=== PATIENT | female | born 1960 | race Two or more races ===

== ENCOUNTER 2024-12-31 09:56 | Day surgery (SDC) | payer OTHER, SELFPAY ==
[2024-12-12 14:20] VITALS: BMI 20.2
--- NOTE | 2024-12-29 17:40 | W.CON.GYNONC ---
Chief Complaint
-
Ovary /FT Cancer
History of Present Illness
64y/[id number]�WF�menopausal�since�age�51�female�seen�in�consultation�today�refrred�to�me�by�Dr�[facility]�regarding malignant�pleural�effusion�The�patient�presented�to[facility]the[facility]on�[facility]�with�dyspnea.�CXR
revealed�large�right�pleural�effusion.�She�had�been�a�smoker�but�quit�leading�up�to�this�admission�due�to�worsening�dyspnea.�She underwent�US�guided�thoracentesis�on�09/12/24�w/�pathology�revealing�malignant�cells�c/w�adenocarcinoma.�Immuno�stains
revealed�positive�staining�for�WT1�and�PAX8,�raising�possibility�of�gynecologic�mullerian�origin.�She�has�had�2�outpatient thoracentesis�since�then�most�recently�on�09/27/2024.�.�
CT�chest�was�performed�revealing�residual�right�pleural�effusion,�no�definitive�lung�nodules,�and�a�4.5cm�right�adrenal�gland�mass.
F/u�CT�abdomen/pelvis�was�performed�on�09/19/24�revealing�4.2�x�3.5cm�right�adrenal�gland�mass,�that�does�not�meet�criteria�for adenoma.�MRI�was�recommended.�
She�had�an�outpatient�therapeutic�thoracentesis�last�Phillip�09/20,�w/�1500cc�taken�off.�patient�does�receive�gynecologic�care through�Dr.�Grupo�office.�last�seen�by�[facility].�
her�SOB�has�not�recurred�significantly�today.�She�denies�chest�pain.�No�palpitations.�No�abdominal�pain.�No�pelvic�pain�or abnormal�gynecologic�bleeding.�No�blood�in�her�stool�or�urine.�
she�saw�Dr�Tomlinson�at�[facility]�last�week�and�a�PET�CT�scan�was�ordered PMH�Hypothyoidism PSH�left�ankle�fracture�repair She�does�get�regular�mammograms.�She�has�had�Cologuard�which�was�negative.
She�is�,��passed�away�from�[facility]� patient�was�a�smoker�until�about�a�month�ago�where�she�experienced�shortness�of�breath�and�discontinued. She�denies�any�alcohol�drug�or�marijuana�use. 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
lives�alone,�is�active�and�independent.�
She�received�cycle�1�chemotherapy�with�Taxol�and�carboplatin�on .�She�reports�that�she�actually�felt�well�following�that.�She�has�not�had�need�for�repeat�thoracentesis�in�the
interim.�Generally�speaking�she�has�tolerated�procedure�well. Endometrial�biopsy�showed�scant�atrophic�endometrium
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
This�is�typically�associated�with�small�increased�risk�of�colorectal�cancer�compared�to�general�population.�No�specialized�colorectal
cancer�screening�is�recommended�based�on�this�single�mono�allelic�mutation.�This�patient�does�not�have�diagnosis�of�MUTYH associated�polyposis�syndrome.
Additionally�a�sample�of�her�pleural�effusion�was�sent�for�NGS,by�[facility].�BRCA�1�and�2�somatic�testing�was�negative.FLOR1 positive�,�HRD�negative,�ARID1�mut�present.�P53�mutation�present.�GPS�AI�testing�confirms�that�there�is�99%�possibility�that�she
has�high�grade�serous�carcinoma�potentially�arising�from�fallopian�tube�or�ovary.
She�received�the�cycle�3�chemotherapy�with�Taxol�and�carboplatin�on�Rema.�She did�receive�1�dose�of�bevacizumab�Jevon�27�but�dose�was�held�during�the�Rema�infusion.�Her�CA125�has�declined�from�initial
high�levels�now�to�87�most�recently.�[facility]�
She�did�undergo�biopsy�of�right�adrenal�gland�and�there�was�no�evidence�of�malignancy.�Diagnosis�was�adrenal�cortical�tissue�and
fragments�of�acellular�fibrin.�This�is�consistent�with�findings�on�a�PET�CT�scan�back�in�November�which�showed�large�right�adrenal mass�without�any�obvious�radiotracer�uptake.
Allergies No�Known�Drug�Allergies
Medications
levothyroxine�50�mcg capsule 1�p.o.�q.�day
lidocaine�prilocaine 2.5�%�topical cream 10/14/2024
ondansetron�HCl�8�mg tablet 10/14/2024 30 3 take�one�q�8�hours�prn�for�nausea
prochlorperazine maleate�10�mg�tablet take�one�q�6�hours�prn�nausea
Medical History
Allergies
Allergies reflect when allergies were last updated in [facility].
No Known Allergies Allergy (Unverified 12/24/24 10:34)
Physical Exam
Physical Exam
Pelvic�Examination: External�normal�labia,�urethra,�anus.� Vagina:�Normal�mucosa.� Cervix:�normal�appearance,�no�discharge.� Uterus:�normal�size.� Adnexa:�No�pelvic�mass.� RVE:�no�masses�or�nodularity
General:�Patient�is�well�developed,�well�nourished.�No�acute�distress. ECOG�Performance:�0:�Fully�active,�able�to�carry�on�all�pre�disease�performance�without�restriction�Head:�Atraumatic�and normocephalic.
Neck:�No�thyromegaly.�No�cervical�lymphadenopathy. Respiratory:�Lungs�clear�to�auscultation.�No�rales�or�rhonchi,�no�added�sounds. Cardiovascular:�S1,�S2�without�murmurs,�Heart�beat�regular. Right�Breast:�No�masses�or�dimpling.�No�nipple�discharge.
Left�Breast:�No�masses�or�dimpling.�No�nipple�discharge. Gastrointestinal:�Abdomen�is�soft,�non�tender,�No�hepatosplenomegaly�palpated.�Bowel�sounds�present�in�four�quadrants. Extremities:�No�edema.
Hematologic/Lymphatic:�No�petechiae.�No�purpura.�No�neck�lymphadenopathy.�No�axillary�lymphadenopathy. Musculoskeletal:�Normal�gait�and�station. Neurologic:�Patient�is�alert�and�oriented�X3.�Speech�is�fluent.
Results
-
Patient:�Mercy Burch�-�1960�12:00:00�AM
[facility]
Test�Performed:�CAPW
Ordering�Physician:�Fahad Carmona
�����������������������������������������[facility]��
����������������������������������[place] [address]��
Patient:�Jonh Burch#:�[id number]������������
:�1960������Age:�64���Sex:�F������������Visit�Number:�[id number]�����������
Admit�Date:�12/19/24���������������������Patient�Phone:�[phone]������������
Adm�Doctor:�Jitendra Overton������������������Ordered�By:�Jitendra Overton�����������
[facility]�������������������Report�#:�[id number]�����
[address]��
[place] [address]��
Study�#:�[id number]��
��
Category:�CAT�Scan��������������������������������������������������������Date�of�Service:�12/19/24���
�����������������
Study�Performed:�CT�chest�abd�pelvis�w�IV�con���������������������������������������������������������
����������������������������
��
����������������������������������������REPORT�STATUS:�Signed��
CT�OF�THE�CHEST,�ABDOMEN�AND�PELVIS�WITH�CONTRAST��
��
CLINICAL�INFORMATION:��Secondary�malignant�neoplasm�of�unspecified�site��
��
PROCEDURE:�CT�examination�of�the�chest,�abdomen�and�pelvis�was�performed�after�administration�of�
intravenous�contrast.�Enteric�contrast�was�administered.��
��
INTRAVENOUS�CONTRAST:�100�mL�of�Omnipaque�350���
��
COMPARISON:�MRI�abdomen�and�pelvis�November����
MIPS�#360:�This�patient�has�had�0�prior�CTs�and�0�nuclear�medicine�cardiac�studies�at�[facility]�over�the�
past�year.��
��
FINDINGS:��
��
LUNGS,�PLEURA:�Smooth�mildly�complex�pleural�thickening�and/or�complex�fusion�posterior�aspect�right
mid�and�lower�lung�zone.�The�central�airways�are�patent.�No�acute�airspace�opacity.��
��
6�mm�groundglass�nodule�right�upper�lobe�image�48.��
Several�punctate�nodular�foci�in�the�right�upper�lobe�are�too�small�to�characterize,�for�example�
image�24,�25�and�42.��
No�left-sided�pulmonary�nodules.��
��
Pleural�nodularity�along�the�right�posterior�diaphragm�measuring�up�to�7�mm�in�thickness.��
��
CARDIOVASCULAR,�MEDIASTINUM,�THYROID:�The�heart�is�normal�in�size.�Atherosclerotic�calcification�of�
the�coronary�arteries.�No�pericardial�effusion.�No�thoracic�aortic�aneurysm.�No�significant�
dilatation�of�the�esophagus.�Thyroid�lobes�are�unremarkable.��
��
LYMPH�NODES:�No�thoracic�lymphadenopathy,�by�imaging�criteria.���
��
CHEST�WALL:�No�aggressive�osseous�lesion.��
��
LIVER:�Normal�in�size�and�configuration.�No�focal�hepatic�lesion.��
������
BILE�DUCTS:�No�intrahepatic�or�extrahepatic�bile�duct�dilation.��
��
GALLBLADDER:�No�calcified�gallstones.�Normal�wall�thickness.��
��
PANCREAS:�Mildly�complex�cystic�focus�in�the�uncinate�process�of�the�pancreas,�13�x�7�mm�in�
transverse�dimensions,�stable�in�retrospect..�No�pancreatic�duct�dilatation.��
��
SPLEEN:�Normal�size.�No�focal�splenic�lesion.��
��
ADRENAL�GLANDS:�Again�noted�is�a�heterogeneous�mass�involving�the�right�adrenal�glands�remains�4�cm�
in�greatest�diameter.�Normal�left�adrenal�gland.��
��
KIDNEYS/URETERS:�No�hydroureteronephrosis.�Bilateral�renal�cysts.��
��
URINARY�BLADDER:�Within�normal�limits.��
��
REPRODUCTIVE�ORGANS:�The�uterus�is�grossly�normal.�No�adnexal�mass.���
��
BOWEL:�No�bowel�dilatation.�No�adjacent�inflammatory�change.�Multiple�diverticula�in�the�sigmoid�
region.�The�appendix�is�normal.�Questionable�mural�filling�defect�in�the�third�portion�the�duodenum�
only�seen�in�retrospect�on�one�series�of�abdomen�MRI�is�not�well�seen�on�the�current�study�in�part�
due�to�incomplete�distention�of�the�duodenal�sweep.��
��
PERITONEUM/RETROPERITONEUM:�No�fluid�collection,�ascites,�or�pneumoperitoneum.���
��
LYMPH�NODES:�No�abdominal�or�pelvic�lymphadenopathy,�by�imaging�size�criteria.���
��
VESSELS:�No�abdominal�aortic�aneurysm�[[id number]].��
��
ABDOMINAL/PELVIC�WALL:�Within�limits�of�normal.��
��
LUMBAR�SPINE/PELVIC�BONES:�No�aggressive�osseous�lesion.��
��
��
IMPRESSION:��
��
��
1.�Small�dependent�mildly�complex�pleural�effusion�at�the�right�lung�base�in�addition�to�some�
pleural�nodularity�along�the�posterior�right�hemidiaphragm.�The�latter�may�represent�patient's�known
�primary�neoplasm.��
2.�Several�punctate�right�upper�lobe�nodules�which�are�too�small�to�characterize�and�can�be�followed
�over�time.��
3.�Mildly�complex�cystic-appearing�lesion�in�the�uncinate�process�of�the�pancreas,�possible�cortical
�and�can�be�followed.��
4.�See�discussion�above�with�respect�to�the�third�portion�of�the�duodenum.�A�discrete�lesion�is�not�
definitively�confirmed�on�the�current�CT�but�lack�of�distention�of�the�second�of�the�bowel�limits�
detail.��
5.�Stable�right�adrenal�mass.��
��
��
��
Dictated�By:�Jarvis�01/25�at�0929
Impression / Plan
-
#1 I reviewed results of Pap smear and endometrial biopsy essentially both are normal and do not reflect primary source of
malignancy.
#2 I will assume that the patient has stage IV endometrial or ovary/tubal malignancy or possibly primary peritoneal cancer, even
absent PET avid lesion treatment algorithm is primary surgery versus neoadjuvant chemotherapy followed by interval debulking
surgery.
#4 Standard as per [facility] and practice today is that the patient should receive combination chemotherapy with paclitaxel and
carboplatin with consideration of use of bevacizumab as neoadjuvant treatment for 3�4 cycles prior to undergoing interval debulking
surgery.
The surgery would include omentectomy, hysterectomy bilateral salpingo�oophorectomy and resection of any other
visible disease. Additional procedures such as appendectomy pelvic and periaortic lymph node dissection and
resection of any implants was discussed
I will proceed with the surgery robotically. date of surgery is December 31
Informed consent will be signed in the office today, I recommended bowel prep prior to surgery
Risks of surgery including infection bleeding injury to adjacent organs DVT pulmonary embolism and cardiovascular
complications were discussed and reviewed.
this will be followed with additional 3 cycles of chemotherapy followed by consideration of maintenance therapy. Maintenance
therapy probably is going to be with bevacizumab as a single agent.
As the biopsy of the adrenal gland is benign I do not recommend removing the adrenal gland at this time, we will continue to follow it
up. She initially had an appointment to see Dr. Velasco and surgical oncology however she canceled it. She is going to reschedule this
appointment and have an opinion formally from him for future management of this.
[2024-12-31] VITALS (9 sets, daily range): BP systolic 108–146; BP diastolic 66–82; BMI 20.2
[2024-12-31] MEDS: NORMOSOL-R/PLASMALYTE-A 1000 IV (10:20)
[2024-12-31] MEDS: HEPARIN 5000 UNITS SC (10:25)
[2024-12-31] MEDS: NEURONTIN 300 MG PO (10:26)
[2024-12-31] MEDS: TYLENOL 1000 MG PO (10:26)
[2024-12-31] MEDS: CELEBREX 200 MG PO (10:26)
--- NOTE | 2024-12-31 16:11 | W.IMMPOSTOP ---
Surgical Immed Post Op Note
-
Primary Surgeon: Dwaine Overton MD
Assisting Surgeon: Zainab Granda PA-C
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
Post-op Diagnosis: Same pending final pathology
Procedure Performed:
Robotic assisted radical cytoreduction including total laparoscopic hysterectomy, bilateral salpingo-oophorectomy, infracolic and gastrocolic omentectomy, resection of anterior and posterior cul-de-sac peritoneum, right and left pelvic peritoneum
and presacral peritoneum, right and left paracolic gutter resection
Robotic assisted laparoscopic appendectomy
Robotic assisted laparoscopic bilateral pelvic lymphadenectomy, bilateral periaortic lymphadenectomy
TAP Block
Anesthesia Type: general ET
Specimen / Cultures: Right and left pelvic peritoneum, anterior and posterior cul-de-sac peritoneum, presacral peritoneum, right and left pelvic lymph nodes, right and left periaortic lymph nodes, uterus and cervix with bilateral tubes and ovaries,
omentum, infra gastric omentum, appendix, pelvic washings, right subdiaphragmatic washing
Estimated Blood Loss: 150 cc
Complications: None
Operative Findings: Exploration of the abdomen reveals left diaphragm to be normal, spleen and liver without any visible disease on the capsule, there is small area of scarring on the right diaphragm suggestive of treated disease, falciform ligament
is normal, stomach is unremarkable. Omentum has multiple areas of treated disease, ranging between 1 to 15 mm nodules, there was no evidence of ascites in the pelvis or upper abdomen, appendix with tumor implants, tumor implants are present
extensively in the pelvis involving anterior and posterior cul-de-sac right and left pelvic peritoneum and paracolic gutters as well as serosa of the uterus. There were additional tumor implants raised drink between 1 to 5 mm involving serosa of
the sigmoid colon, there are additional tumor implants 1 to 5 mm involving surfaces and serosa of sigmoid colon as well as cecum and ileum. There was no suspicious retroperitoneal lymphadenopathy. At the completion of procedure visible disease has
been resected, there are however some implants that are less than 5 mm probably involving sigmoid serosa small bowel serosa and cecum serosa. I did not feel resection of these portions of the bowel would be beneficial in terms of disease control,
thus classifying her as R1.
--- NOTE | 2024-12-31 16:18 | OR.RPT ---
Operative Report
Operative Report
Primary Surgeon: Dwaine Overton MD
Assisting Surgeon: Zainab Granda PA-C
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
Post-op Diagnosis: Same pending final pathology
Procedure Performed:
Robotic assisted radical cytoreduction including total laparoscopic hysterectomy, bilateral salpingo-oophorectomy, infracolic and gastrocolic omentectomy, resection of anterior and posterior cul-de-sac peritoneum, right and left pelvic peritoneum
and presacral peritoneum, right and left paracolic gutter resection
Robotic assisted laparoscopic appendectomy
Robotic assisted laparoscopic bilateral pelvic lymphadenectomy, bilateral periaortic lymphadenectomy
TAP Block
Anesthesia Type: general ET
Specimen / Cultures: Right and left pelvic peritoneum, anterior and posterior cul-de-sac peritoneum, presacral peritoneum, left uterosacral ligament peritoneum, right and left pelvic lymph nodes, right and left periaortic lymph nodes, uterus and
cervix with bilateral tubes and ovaries, omentum, infra gastric omentum, appendix, pelvic washings, right subdiaphragmatic washing
Estimated Blood Loss: 150 cc
Complications: None
Operative Findings: Exploration of the abdomen reveals left diaphragm to be normal, spleen and liver without any visible disease on the capsule, there is small area of scarring on the right diaphragm suggestive of treated disease, falciform ligament
is normal, stomach is unremarkable. Omentum has multiple areas of treated disease, ranging between 1 to 15 mm nodules, there was no evidence of ascites in the pelvis or upper abdomen, appendix with tumor implants, tumor implants are present
extensively in the pelvis involving anterior and posterior cul-de-sac right and left pelvic peritoneum and paracolic gutters as well as serosa of the uterus. There were additional tumor implants raised drink between 1 to 5 mm involving serosa of
the sigmoid colon, there are additional tumor implants 1 to 5 mm involving surfaces and serosa of sigmoid colon as well as cecum and ileum. There was no suspicious retroperitoneal lymphadenopathy. At the completion of procedure visible disease has
been resected, there are however some implants that are less than 5 mm probably involving sigmoid serosa small bowel serosa and cecum serosa. I did not feel resection of these portions of the bowel would be beneficial in terms of disease control,
thus classifying her as R1.
Procedure in detail: This patient was taken to the operating room, she was placed in supine position, general anesthesia was administered she was intubated without any difficulty she was placed in lithotomy position using yellowfin stirrups, arms
were wrapped in foam and placed along the patient's side after appropriate IVs had been placed. Shoulder and neck areas were supported as well as all joints were examined and supported. The patient was prepped on the abdomen perineum upper thighs
and draped. Timeout procedure was carried out, she received Ancef 2 g, Flagyl 500 mg IV and had received heparin subcutaneous injection prior to arriving to the operating room. Manzo catheter was placed under sterile conditions in the bladder.
Using a bivalve speculum, cervix was identified grasped and anterior lip endocervical canal was dilated, uterine manipulator product manager type with 3.5 cm KENNY ring was placed around the cervix and vaginal cuff occluder was insufflated. Attention was
turned abdominally Veress needle was inserted just below left subcostal margin into the peritoneal cavity and CO2 gas was used to create pneumoperitoneum up to pressure of 15 mmHg. 8 mm X Xi robotic port was inserted 25 cm cephalad to symphysis
pubis along the midline and exploration of the abdomen was performed with this and under direct visualization additional 8 mm robotic ports were inserted in the right upper quadrant left upper quadrant and left lateral abdomen. 12 mm air seal port
was inserted in right lateral abdomen, the patient was placed in 28 degree Trendelenburg and robotic system was docked. Washings were collected from right diaphragm as well as pelvis and submitted to cytology. I went ahead and resected right and
left paracolic gutter peritoneum and these were submitted to pathology right and left round ligaments were sealed and divided lateral in the pelvis incorporating the remainder of the round ligaments and the uterine specimen. Retroperitoneal spaces
were opened pararectal and pararectal vesicle spaces were developed, there were adhesions between the sigmoid colon and left IP ligament and these were tumor nodules were left on the IP ligament IP ligament was isolated a window was
created between IP ligament and ureter here and IP ligament was sealed 3 times and divided tubes and ovaries were mobilized. Attention was turned to the right side similarly IP ligament on the right was isolated and a window was created between
ovarian vessels and ureter and IP ligament was sealed and divided 3 times we then excised and removed the entire pelvic peritoneum from pelvic inlet down to uterosacral ligaments. Additional peritoneum over the left uterosacral ligament containing
tumor nodules was resected. We also resected the posterior cul-de-sac peritoneum and submitted that to pathology. Bladder flap was sharply developed and advanced below the cervicovaginal junction. Bladder peritoneum in the anterior cul-de-sac was
excised and this was unroofed from the dome of the bladder and submitted to pathology. Uterine arteries were skeletonized sealed and divided bilaterally. Circumferential incision was made over the KENNY ring until the specimen was completely
detached. Specimen of uterus cervix bilateral tubes and ovaries was removed and submitted to pathology. The vaginal cuff was left open for extraction of rest of the specimens. Bilateral pelvic lymphadenectomy was completed removing the entire
lymphatic tissue between bifurcation of common iliac vessels down to the level of deep circumflex iliac artery and vein along the external iliac artery as well as vein and then obturator fossa anterior to the obturator nerve. Sharp dissection was
performed. There was no injury to blood vessels nerves or ureter. We then focused our attention on the omentum, omentum was brought into the view, 30 degree down scope was used for this portion of the procedure omental attachments to the
transverse colon were taken down, vessel sealer was used to seal and transect multiple omental vessels from hepatic to splenic flexure and the infracolic portion of the omentum was completely released and was extracted through the vagina and
submitted to pathology. Next we turned our attention to the appendix the appendix was identified mesoappendix was sealed and divided TATO 45�vascular stapler was fired across the base of the appendix and the cecum and the specimen of appendix was
actually extracted through the vagina. We examined the cecum and 2 rows of felice were present and good hemostasis was present. Following this we resected the peritoneum overlying the presacral space as it contained multiple tumor nodules and
once this was completed the peritoneum over lower aorta and right common iliac vessel was opened ureter was elevated. The entire lymphatic tissue from right renal vessels down to the level of mid common iliac was removed from the aortocaval region
as well as precaval region. These were submitted as right periaortic lymph nodes. We opened the space of the left periaortic space, we preserved the GINNA. I went ahead and resected the lymph nodes between GINNA down to the level of common iliac
vessels and lymph nodes were removed and submitted to pathology. We visualized the course of ureter throughout this portion of the procedure and there was no injuries noted. Once this was completed we went ahead and undocked the robotic system, we
placed another 5 mm port approximately 5 cm below the umbilicus and docked the robot with the patient in reverse Trendelenburg and focused on the upper abdomen. We examined both diaphragms and they were without disease. Falciform ligament was
normal and there was no indication for resection. Spleen and liver capsule were normal. We examined the gastrocolic omentum I was able to open the lesser sac, a series of short gastric vessels along the greater curvature of the stomach was sealed
and divided starting from duodenum all the way up to right diaphragm and omental attachments just below the spleen to the peritoneum were taken down, omental attachments to the transverse colon were taken down, we were able to use vessel sealer to
seal and transect across multiple omental vessels and the entire omentum specimen was completely released up to splenic flexure of the colon. There was no injury to pancreas spleen or colon. At this point there was no indication for any additional
upper abdominal procedures, the robotic system was undocked and we placed the patient back in 28 degree Trendelenburg and docked the robotic system. The gastric omentum was brought out through the vagina and submitted to pathology. Vaginal apex
was irrigated, we closed right and left apices with [id number] sutures of 0 Vicryl in a [id number] fashion. Vaginal cuff was closed with a running suture of V-Loc starting from right groin to the left and coming back to the right side. I
sprayed a total of 8 mL of Tisseel over retroperitoneal lymph node dissection spaces as well as periaortic lymph node dissection site and vaginal apex. We irrigated the pelvis copiously and removed all residual fluid. There was no active bleeding
from any of the operative sites. I went ahead and reexamined the loops of bowel and noted that there were implants that are less than 5 mm involving sigmoid serosa and small bowel ileum and a small area on the cecum. I did not feel resection of
these portions of the bowel would benefit the patient in terms of disease control and thus decided to terminate the procedure. Robotic system was undocked, we closed the 12 mm air seal port with Blaine Jiang system using 0 Vicryl suture. Fascia
was closed and felt secure. Skin incisions were closed with 4-0 Monocryl in a subcuticular fashion at all 6 port sites. Vagina was irrigated and there was no lacerations or bleeding. Manzo catheter was removed. Patient was awakened extubated and
returned back to recovery room stable awake and extubated condition. Counts of laps instruments and needle was correct x 2. I was present and scrubbed for entire procedure as dictated above
Disposition: To PACU stable awake and extubated
[2024-12-31 16:49] LABS: Hematocrit 32.8 % (37.0-47.0); Hemoglobin 10.5 g/dL (12.0-16.0); Mean Corpuscular Hgb 32.1 pg (27.0-31.0); Mean Corpuscular Volume 100.3 fL (81.0-99.0); Mean Platelet Volume 8.8 fL (7.4-10.4); Platelet Count 274 10^3/uL (130-400); Red Blood Cell Count 3.27 10^6/uL (4.20-5.40); Red Cell Dist. Width 18.7 % (11.5-14.5); White Blood Cell Count 17.9 10^3/uL (4.8-10.8)
[2024-12-31 17:06] LABS: Blood Urea Nitrogen 9 mg/dl (7-17); Carbon Dioxide 24 mmol/L (22-30); Chloride 104 mmol/L (98-107); Estimated Creatinine Clearance 99 ml/min; Glucose 150 mg/dl (70-99); Sodium 138 mmol/L (135-145); eGFR > 60.00
== END 2024-12-31 19:20 | disposition home or self-care (01) ==
LOC: SDS 09:56
PROVIDERS: ATTENDING PHYSICIAN Obstetrics & Gynecology Gynecologic Oncology; FAMILY PHYSICIAN Physician Assistant
DX: C57.01 Malignant neoplasm of right fallopian tube (principal); C56.9 Malignant neoplasm of unspecified ovary; C78.6 Secondary malignant neoplasm of retroperitoneum and peritoneum; C77.5 Secondary and unspecified malignant neoplasm of intrapelvic lymph nodes; R59.0 Localized enlarged lymph nodes; N72 Inflammatory disease of cervix uteri
CPT/HCPCS: 38572; 58571; 88304; 88305; 88307; 88309; 36415; 80048; 85027; 86850; 86900; 86901; 88112; 93005; C9250